=== PATIENT | male | born 1990 | race American Indian/Alaskan Native ===

== ENCOUNTER 2020-10-17 08:51 | Emergency (ER) | payer SELFPAY ==
[2020-10-17 09:09] VITALS: BP 116/75
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
--- NOTE | 2020-10-17 10:22 | Cat Scan Report ---
CT head/brain wo con INDICATION: Fall/facial injury/head injury. TECHNIQUE: All CT scans at this location are performed using CT dose reduction for ALARA by means of automated e xposure control. COMPARISON: None available. FINDINGS: There is no evidence of hemorrhage, hydrocephalus, brain edema, or mass effect/mass lesion. There is overall normal brain formation and brain volume for the patient's age. Ventricular and cisternal/sulc al size is normal for age. The included paranasal sinuses and mastoid air cells are clear. The orbits appear unremarkable. IMPRESSION: 1. No acute intracranial abnormality. Signer Name: Davey Pennington MD Signed: 10/17/2020 10:18 AM Workstation Name: [id number]
--- NOTE | 2020-10-17 10:24 | Cat Scan Report ---
CT MAXILLOFACIAL WITHOUT CONTRAST INDICATION: fall/facial injury. TECHNIQUE: CT facial bones without contrast. All CT scans at this location are performed using CT dose reduction for ALARA by means of automated exposure control. COMPARISON: None available. FINDINGS: FACIAL BONES: No fracture or other significant abnormality. PARANASAL SINUSES: No significant abnormality. ORBITS: No significant abnormality. VISUALIZED INTRACRANIAL STRUCTURES: No significant abnormality. ADDITIONAL FINDINGS: None. IMPRESSION: 1. No significant abnormality. Signer Name: Davey Pennington MD Signed: 10/17/2020 10:20 AM Workstation Name: [id number]
[2020-10-17] MEDS ORDERED: TETANUS,DIPH,PERTUSS(ACELL) VACCINE 0.5 ML SYRINGE IM ONE (10:46)
== END 2020-10-17 11:10 | disposition home or self-care (01) ==
LOC: ED 08:51
DX: S09.90XA Unspecified injury of head, initial encounter (principal); S01.81XA Laceration without foreign body of other part of head, initial encounter; F41.9 Anxiety disorder, unspecified; F17.200 Nicotine dependence, unspecified, uncomplicated; V28.4XXA Motorcycle driver injured in noncollision transport accident in traffic accident, initial encounter; Y93.89 Activity, other specified; Y92.410 Unspecified street and highway as the place of occurrence of the external cause; Y99.8 Other external cause status
CPT/HCPCS: 70450; 70486; 90471; 90715